=== PATIENT | female | born 1950 | race Hispanic/Latino ===

== ENCOUNTER 2018-07-18 16:00 | Observation (INO) | payer OTHER ==
[~2018-07-18] VITALS: Ht 154.9 cm; Wt 84.1 kg
[2018-07-18 15:56] LABS: APPEARANCE,URINE Clear (CLEAR); BILIRUBIN,URINE Negative (NEGATIVE); COLOR,URINE Dark Yellow (YELLOW); GLUCOSE, URINE (UA) Negative (NEGATIVE); KETONES,URINE Trace mg/dL (NEGATIVE); LEUKOCYTE ESTERASE ,URINE Trace (NEGATIVE); NITRATE,URINE Negative (NEGATIVE); OCCULT BLOOD,URINE Negative (NEGATIVE); PROTEIN,URINE Negative (NEGATIVE)
[2018-07-18 16:07] LABS: BACTERIA,URINE Moderate /HPF (None Seen); MUCUS,URINE Few LPF (None Seen); RBC,URINE None Seen /HPF (0-1)
[2018-07-18 16:38] VITALS: BP 155/62
[2018-07-18] MEDS ORDERED: LISI10TA7 PO (16:40)
--- NOTE | 2018-07-18 18:20 | NUR ---
UA ua from 07/18/[address] David with moderate bacteria, orders to give gentamicin 240mg IV in holding
[2018-07-19] VITALS (20 sets, daily range): BP systolic 122–176; BP diastolic 54–91
[2018-07-19] MEDS ORDERED: LACTATED RINGERS 1000ML 1,000 ML IV ONE (07:25)
[2018-07-19] MEDS: CEFAZOLIN SODIUM 1 GM VIAL IVP SCH ×4 (07:40→23:06)
[2018-07-19] MEDS: GENTAMICIN SULFATE 240 MG in SODIUM CHLORIDE 0.9% 100 ML IV SCH (07:42)
[2018-07-19] MEDS ORDERED: TRANEXAMIC ACID 1000MG/10ML IV ONE ×2 (07:49→10:53)
[2018-07-19] MEDS ORDERED: CEFAZOLIN SODIUM 1 GM VIAL ONE (07:49)
[2018-07-19] MEDS ORDERED: LIDOCAINE PF 2% 5ML ABBOJECT ONE ×2 (07:55→07:58)
[2018-07-19] MEDS ORDERED: PROPOFOL 10 MG/ML 20ML VIAL IV ONE (07:56)
[2018-07-19] MEDS ORDERED: ROCURONIUM 10MG/1ML SYR 10 MG/ML ML ONE (07:56)
[2018-07-19] MEDS ORDERED: MIDAZOLAM HCL 1 MG/ML 2ML VIAL ONE (07:56)
[2018-07-19] MEDS ORDERED: FENTANYL CITRATE PF 50 MCG/1 ML 2ML VIAL ONE ×2 (07:57)
[2018-07-19] MEDS ORDERED: EPHEDRINE SULFATE 50 MG/ML AMPULE ONE (08:46)
[2018-07-19] MEDS ORDERED: CALCIUM CARBONATE 500 MG TABLET PO PRN (10:30)
[2018-07-19] MEDS ORDERED: POTASSIUM CHLORIDE 20 MEQ ERTAB PO PRN (10:30)
[2018-07-19] MEDS ORDERED: FERROUS FUMARATE 324 MG TABLET PO PRN (10:30)
[2018-07-19] MEDS ORDERED: POTASSIUM CHLORIDE 20MEQ/100ML 100 ML IV PRN (10:30)
[2018-07-19] MEDS ORDERED: DiphenhydrAMINE HCL 50 MG/ML VIAL IVP PRN (10:30)
[2018-07-19] MEDS ORDERED: TEMAZEPAM 15 MG CAPSULE PO PRN (10:30)
[2018-07-19] MEDS ORDERED: TRAMADOL HCL 50 MG TABLET PO PRN (10:30)
[2018-07-19] MEDS ORDERED: ONDANSETRON HCL 4 MG/2 ML VIAL IVP PRN (10:30)
[2018-07-19] MEDS ORDERED: LIDOCAINE HCL-MPF 1% 2ML VIAL IVP PRN (10:30)
[2018-07-19] MEDS ORDERED: MEPERIDINE-PF 25 MG/ML SYG ONE (10:50)
[2018-07-19] MEDS ORDERED: MORPHINE SULFATE 4 MG/1ML SYG ONE (11:02)
[2018-07-19] MEDS: SODIUM CHLORIDE 0.9% 1000ML 1,000 ML IV SCH ×2 (11:45→20:40)
[2018-07-19] MEDS: ACETAMINOPHEN EXTRA STRENGTH 500 MG TABLET PO SCH ×2 (11:45→17:39)
[2018-07-19] MEDS: KETOROLAC TROMETHAMINE 15MG/ML IV PRN ×2 (12:46→20:49)
[2018-07-19] MEDS: OXYCODONE HCL 5 MG TAB PO PRN ×2 (14:12→23:05)
--- NOTE | 2018-07-19 16:00 | NUR ---
INCREASED PAIN PATIENT STATES PAIN INCREASED FROM A 5 TO A 7 DESPITE GIVEN OXYCODONE 5MG PO. TRAMADOL 50MG PO GIVEN WHILE PAGED. PT IS AAOX3, IN NO SEVERE DISTRESS. ICE PACKS PLACED TO LEFT KNEE. PENDING MD CALL BACK. FAMILY AT BEDSIDE.
--- NOTE | 2018-07-19 17:00 | NUR ---
DECREASE IN PAIN MD PENDING CALL BACK. PER PT, PAIN DECREASED FROM A 7 TO A 4 WITH TRAMADOL AND ICE PACKS. TYLENOL EXTRA STRENGTH TO BE GIVEN ORDERED. WILL CONTINUE TO MONITOR PT CLOSELY.
--- NOTE | 2018-07-19 20:08 | NUR ---
D/C PLAN CM spoke to pt regarding d/c planning. Pt lives with spouse. States spouse and children will be assisting in care at discharge. CM explained orders for home health and DME. Pt agreeable to plan. CM offered in network choices. CM obtained consent for [facility] for standard wk and 06/30 [facility]. CM to fax referral to both entities. No other questions or concerns verbalized. CM to f/u. Addendum: 07/19/18 at 2010 by JESS ALVAREZ CM Amended: Links added.
[2018-07-19] MEDS: CELECOXIB 200 MG CAP PO SCH (20:40)
[2018-07-19] MEDS: PREGABALIN 25 MG CAP PO SCH (20:40)
[2018-07-19] MEDS: ASPIRIN 325 MG TABLET PO SCH (20:40)
[2018-07-19] MEDS: FAMOTIDINE 20MG TAB 20 MG TAB PO SCH (20:40)
[2018-07-20] VITALS: BP 132/70
[2018-07-20] MEDS: SODIUM CHLORIDE 0.9% 1000ML 1,000 ML IV SCH (01:54)
[2018-07-20] MEDS: ACETAMINOPHEN EXTRA STRENGTH 500 MG TABLET PO SCH ×2 (03:02→11:32)
[2018-07-20] MEDS: OXYCODONE HCL 5 MG TAB PO PRN ×3 (03:02→14:03)
[2018-07-20 04:00] VITALS: BP 138/64
[2018-07-20 05:01] LABS: HEMATOCRIT 36.9 % (36-48); MEAN CORPUSCULAR HEMOGLOBIN 31.7 pg (27.0-33.0); MEAN CORPUSCULAR HGB CONC 33.6 g/dL (32.0-36.0); MEAN CORPUSCULAR VOLUME 94.2 fL (79-99); PLATELET COUNT (AUTO) 183 K/uL (130-400); RED BLOOD CELL COUNT(AUTO) 3.91 MIL/uL (4.00-5.50); RED CELL DISTRIBUTION WIDTH 13.6 % (11.0-15.5); WHITE BLOOD COUNT (AUTO) 11.3 K/uL (4.8-10.8)
[2018-07-20 05:19] LABS: CREATININE 0.7 mg/dL (0.5-1.5); POTASSIUM 3.4 mmol/L (3.5-5.1)
[2018-07-20] MEDS: GENTAMICIN SULFATE 240 MG in SODIUM CHLORIDE 0.9% 100 ML IV SCH (06:32)
[2018-07-20] MEDS: POTASSIUM CHLORIDE 10% ELIXIR 20 MEQ/15 ML UDCUP PO PRN ×2 (06:35→11:36)
[2018-07-20 07:30] VITALS: BP 140/75
[2018-07-20] MEDS: ASPIRIN 325 MG TABLET PO SCH (08:19)
[2018-07-20] MEDS: CELECOXIB 200 MG CAP PO SCH (08:19)
[2018-07-20] MEDS: FAMOTIDINE 20MG TAB 20 MG TAB PO SCH (08:19)
[2018-07-20] MEDS: PREGABALIN 25 MG CAP PO SCH (08:19)
[2018-07-20] MEDS ORDERED: LISINOPRIL 10 MG TABLET PO SCH (09:00)
[2018-07-20] MEDS ORDERED: POLYETHYLENE GLYCOL 3350 17 GM POWD.PACK PO SCH (09:00)
[2018-07-20 11:00] VITALS: BP 131/57
[2018-07-20] MEDS: KETOROLAC TROMETHAMINE 15MG/ML IV PRN (11:37)
[2018-07-20] MEDS ORDERED: ASPI-1012 PO (12:11)
[2018-07-20] MEDS ORDERED: HYDR-4457 PO (12:11)
--- NOTE | 2018-07-20 13:19 | NUR ---
DC PLAN PATIENT ACCEPTED TO [facility]. LUIS MANUEL PALMER TO PATIENT. PATIENT TO [facility] TODAY. Addendum: 07/20/18 at 1324 by ANN MARIE AGUILAR RN CM Amended: Links added.
--- NOTE | 2018-07-20 15:05 | NUR ---
DISCHARGE DISCHARGE TEACHING DONE WITH PATIENT USING TEACHBACK METHOD, VERBALIZED UNDERSTANDING. NO NOTED SOB OR DISTRESS. NEW MEDICATION ADMINISTRATION TEACHING DONE WITH PATIENT AND DAUGHTER USING TEACHBACK METHOD, VERBALIZED UNDERSTANDING. PT AWARE OF APPOINTMENT WITH DR. TAM. CHAD DRESSING INTACT, CHAD DRESSING TEACHING DONE WITH PATIENT AND DAUGHTER, VERBALIZED UNDERSTANDING. IV REMOVED, CATH TIP INTACT. PENDING TO BE TRANSFERRED OUT VIA PRIVATE VEHICLE. REPORT CALLED TO HOME HEALTH.
[2018-07-22] MEDS ORDERED: BISACODYL 10 MG SUPP.RECT RC PRN (10:30)
== END 2018-07-20 15:15 | disposition home health service (06) ==
LOC: EDSTATUS 16:00 → INTOOBSV 07-19 06:31 → DAHIP 07-19 06:31 → 4AH 07-19 12:13 → EDSTATUS 07-19 16:00
PROVIDERS: ADMIT Orthopaedic Surgery; ATTEND Orthopaedic Surgery
DX: M17.12 Unilateral primary osteoarthritis, left knee (principal); G89.29 Other chronic pain; I10 Essential (primary) hypertension; E66.9 Obesity, unspecified; Z79.899 Other long term (current) drug therapy; Z90.710 Acquired absence of both cervix and uterus; Z80.9 Family history of malignant neoplasm, unspecified; Z68.36 Body mass index [BMI] 36.0-36.9, adult
CPT/HCPCS: 27447; 36415 ×2; 80048; 81001; 85027; 86850; 86900; 86901; 88305; 88311; 96374; 96375; 96376 ×2; 97039; 97116 ×2; 97161; A4218; A4600; A4649 ×6; A4930 ×3; A9272; C1763; C1776; G0378 ×34; G8978; G8979; G8980; G8981; G8982; G8983; J0690 ×4; J1580 ×2; J1885 ×3; J2001 ×2; J2175; J2250; J2270; J2704; J3010 ×2; J3490 ×3; J7030; J7120 ×2

== ENCOUNTER → 2018-08-18 | Outpatient (CLI) | payer OTHER ==
[~2018-08-18] MED LIST: ASPI-1012 PO; HYDR-4457 PO; LISI10TA7 PO
== END | disposition home or self-care (01) ==
LOC: RAH 08:42
PROVIDERS: ATTEND Internal Medicine Gastroenterology
DX: K76.0 Fatty (change of) liver, not elsewhere classified (principal); K80.20 Calculus of gallbladder without cholecystitis without obstruction; J98.4 Other disorders of lung; K76.89 Other specified diseases of liver
CPT/HCPCS: 76700

== ENCOUNTER 2020-07-13 01:00 | Emergency (ER) | payer OTHER ==
[~2020-07-13 01:00] MED LIST changes: +LISI10TA24 PO; -LISI10TA7 PO
[2020-07-13] MEDS ORDERED: KETOROLAC TROMETHAMINE 60 MG/2 ML VIAL ONE (01:32)
[2020-07-13] MEDS ORDERED: ORPHENADRINE CITRATE 30 MG/ML ML ONE (01:32)
[2020-07-13] MEDS ORDERED: LIDOCAINE 5% TOPICAL PATCH TP ONE (01:33)
== END 2020-07-13 02:31 | disposition home or self-care (01) ==
LOC: EDH 01:00
DX: M62.830 Muscle spasm of back (principal); I10 Essential (primary) hypertension; Z90.710 Acquired absence of both cervix and uterus; Z79.899 Other long term (current) drug therapy
CPT/HCPCS: 96372 ×2; 99284; J1885; J2360